=== PATIENT | female | born 1995 | race African-American/Black ===

== ENCOUNTER 2017-04-19 11:03 | Emergency (ER) | payer SELFPAY ==
[2017-04-19 11:33] LABS: Bilirubin Negative (Negative); Blood, Urine Negative (Negative); Glucose, Urine (Dipstick) Negative (Negative); Ketone, Urine Negative (Negative); Nitrite Negative (Negative); Protein, Urine (Dipstick) 30 mg/dL (Neg-Trace); Urobilinogen 0.2 mg/dL (0.2-1.0)
[2017-04-19 11:41] LABS: #Basophils 0.1 thou/uL (0.0-0.2); #Eosinphils 0.3 thou/uL (0.0-0.7); #Lymphocytes 2.7 thou/uL (1.20-3.40); #Monocytes 0.5 thou/uL (0.11-0.59); #Neutrophils 4.7 thou/uL (1.40-6.50); %Eosinophils 3.9 % (0.0-10.0); %Lymphocytes 32.4 % (28.0-48.0); Hematocrit 39.6 % (36.0-47.0); Mean Platelet Volume 7.8 fL (7.4-10.4); Red Blood Cell (RBC) Count 4.59 mill/uL (4.00-5.20); White Blood Cell (WBC) Count 8.2 thou/uL (4.8-10.8)
[2017-04-19 11:45] LABS: Bacteria/HPF Rare-Few HPF (None Seen); RBC/HPF 0-3 HPF (0-3); Squamous Epithelial 0-3 HPF (0-3); WBC/HPF 0-3 HPF (0-3)
[2017-04-19 11:58] LABS: Anion Gap 11 mmol/L (10-20); BUN (Urea Nitrogen) 11 mg/dL (7.0-18.7); Calc. Creatinine Clearance 0 mL/min (70-130); Calcium 9.2 mg/dL (7.8-10.44); Carbon Dioxide 26 mmol/L (22-29); Chloride 107 mmol/L (98-107); Estimated GFR-MDRD Greater than 90
== END 2017-04-19 13:03 | disposition home or self-care (01) ==
LOC: SCSER 11:03
DX: E86.0 Dehydration (principal); R19.7 Diarrhea, unspecified; R11.2 Nausea with vomiting, unspecified; J45.909 Unspecified asthma, uncomplicated
CPT/HCPCS: 80048; 81003; 81015; 81025; 85025; 99284

== ENCOUNTER 2018-07-16 14:21 | Emergency (ER) | payer SELFPAY ==
[2018-07-16] MEDS ORDERED: Dexamethasone 10 MG/ML VIAL ONE (14:38)
== END 2018-07-16 14:43 | disposition home or self-care (01) ==
LOC: SCSER 14:21
DX: J02.9 Acute pharyngitis, unspecified (principal); J06.9 Acute upper respiratory infection, unspecified; J45.909 Unspecified asthma, uncomplicated; F17.210 Nicotine dependence, cigarettes, uncomplicated
CPT/HCPCS: 99283; J1100

== ENCOUNTER 2019-05-17 23:01 | Emergency (ER) | payer SELFPAY | END 2019-05-17 23:28 | disposition home or self-care (01) | LOC: SCSER 23:01 | DX: J02.9 Acute pharyngitis, unspecified (principal); J45.909 Unspecified asthma, uncomplicated; F41.9 Anxiety disorder, unspecified; F32.9 Major depressive disorder, single episode, unspecified; F17.210 Nicotine dependence, cigarettes, uncomplicated; Z79.51 Long term (current) use of inhaled steroids | CPT/HCPCS: 87081; 87430; 99283 ==

== ENCOUNTER → 2019-11-28 | Day surgery (SDC) | payer OTHER ==
[~2019-11-28] MED LIST: hydrALAZINE 20 MG/ML VIAL SLOW IVP PRN
--- NOTE | 2019-11-29 05:50 | PRG ---
DATE OF SERVICE: 11/28/2019 PRIMARY OB: Antonio Thompson MD CHIEF COMPLAINT: Right groin pain. HISTORY OF PRESENT ILLNESS: The patient is a 24-year-old, G2, P1 female with an intrauterine of a di-di twin gestation at 23 weeks and 3 days presenting today with right-sided groin pain. She reports that she has a habit of jumping out of bed when she wakes up and pulled something in her right lower pelvis. The patient reports that it is not difficult for her to get out of bed and to roll over and came for evaluation to make sure everything was okay. The patient denies fever, fall, headache, chest pain or shortness of breath. She has nausea. Denies vomiting. Denies diarrhea or constipation. Denies any new rashes, hip problems, knee problems or muscle weakness. Denies vaginal bleeding, leakage of fluid, urinary urgency or frequency. She last saw her provider a couple of weeks ago and is scheduled at the beginning days of December for her followup appointment. The patient reports that she has extreme itching when she gets out of the shower and that she has tried using different soaps. PAST MEDICAL HISTORY: Reports a history of asthma. PAST SURGICAL HISTORY: She has had 1 prior . PSYCHIATRIC HISTORY: Anxiety and depression. SOCIAL HISTORY: The patient reports tobacco use, 4 to 5 cigarettes a day. Denies alcohol or drug use. ALLERGIES: NO KNOWN DRUG ALLERGIES. MEDICATIONS: vitamins. OB LABS: Unavailable at time of dictation. REVIEW OF SYSTEMS: Per HPI. PHYSICAL EXAMINATION: VITAL SIGNS: Blood pressure 133/69, heart rate of 93, respiratory rate 18, and temperature 98.2. GENERAL: She appears to be in no acute distress. She is alert, oriented, cooperative, and pleasant to interact with. HEAD: Normocephalic and atraumatic. LUNGS: Clear to auscultation bilaterally. HEART: Has regular rate and rhythm. ABDOMEN: Gravid and soft. No palpable contractions. She has reproducible pain in the right lower inguinal region with deviation of the uterus to the left. She has no fundal tenderness or no other uterine or abdominal tenderness. EXTREMITIES: Nontender and nonedematous. : Has been deferred. Heart tones for the twins are dopplered in the 120s and 150s. ASSESSMENT/PLAN: The patient is a 24-year-old with an intrauterine of twin gestation at 23 weeks and 3 days experiencing musculoskeletal pains of . We did review a different technique for getting out of bed that would help her minimize future risk of pulling the similar ligaments and muscles. The patient does report that it helps as we practiced a couple of times today in the bed. We have also recommended a belly band. We spent some time discussing a way to hydrate her skin and minimize her itching as the patient does report she enjoys hot showers. We have asked her to take some lukewarm showers, to only use soap in the areas that cause the most odor for her, and to not towel dry, but to hydrate her skin with a hypoallergenic lotion, air dry as much as possible and pat dry areas that need the additional help. The patient is otherwise being discharged to home with reassurance. She has also been counseled to try to take two Tylenols 3 times a day for the next several days to see if this will help, and she has been counseled to follow up with her primary OB as scheduled on December 07 or . Job ID: [id number]
== END | disposition home or self-care (01) ==
LOC: L&D/OP 17:24
PROVIDERS: ATTEND Family Medicine
DX: O99.89 Other specified diseases and conditions complicating pregnancy, childbirth and the puerperium (principal); R10.31 Right lower quadrant pain; O30.042 Twin pregnancy, dichorionic/diamniotic, second trimester; O99.332 Smoking (tobacco) complicating pregnancy, second trimester; F17.210 Nicotine dependence, cigarettes, uncomplicated; O99.512 Diseases of the respiratory system complicating pregnancy, second trimester; J45.909 Unspecified asthma, uncomplicated; O34.219 Maternal care for unspecified type scar from previous cesarean delivery; Z3A.23 23 weeks gestation of pregnancy

== ENCOUNTER 2019-12-22 22:05 | Day surgery (SDC) | payer OTHER ==
[2019-12-22 22:42] VITALS: BMI 41.1
[2019-12-22] MEDS ORDERED: hydrALAZINE 20 MG/ML VIAL SLOW IVP PRN (23:09)
--- NOTE | 2019-12-23 03:32 | PRG ---
DATE OF SERVICE: 12/22/2019 PRIMARY OB: Antonio Thompson MD. CHIEF COMPLAINT: Pelvic pain. HISTORY OF PRESENT ILLNESS: The patient is a 24-year-old G2, P1 with an intrauterine at 27 weeks gestation of a twin gestation believed to be dichorionic diamniotic per patient report. The patient is presenting with complaints of 4-day history of pain in her lower pelvis, right side worse than left. She reports the pain is sharp, worse with activity and movement and mostly she tries to get out of bed too quickly. The patient denies any vaginal bleeding, leakage of fluid, urinary urgency or frequency. Denies uterine contractions. The patient does report that she has been seen by [facility] because her babies are measuring very small. She has an appointment tomorrow, at which time the patient may be admitted to the hospital for inpatient management in [place]. The patient denies fever, cough, headache, chest pain, shortness of breath, nausea, vomiting, diarrhea, constipation, new rashes, hip problems, knee problems, muscle weakness, again vaginal bleeding, leakage of fluid, urinary urgency or frequency. PAST MEDICAL HISTORY: Asthma, anxiety, depression, bipolar disorder,. PAST SURGICAL HISTORY: She has had 1 prior . SOCIAL HISTORY: Positive for tobacco use. Denies alcohol or drug use. ALLERGIES: NO KNOWN DRUG ALLERGIES. MEDICATIONS: vitamins. OB LABS: Unavailable at time of dictation. PHYSICAL EXAMINATION: VITAL SIGNS: Blood pressure 131/75, heart rate of 99, saturating 98% on room air, respiratory rate of 18. GENERAL: She appears to be in no acute distress. She is alert, oriented, cooperative, and pleasant to interact with. HEENT: Head is normocephalic and atraumatic. LUNGS: Clear to auscultation bilaterally. HEART: Regular rate and rhythm. ABDOMEN: Gravid, soft. She does have some tenderness in the right lower quadrant with deviation of the uterus. No rebound. No guarding. No peritoneal signs. EXTREMITIES: Nontender. Minimal symmetrical edema. heart tracing difficult to obtain due to habitus. Baby A appears to have a baseline in the 160s with accelerations and baby B in the 150s with possible variable decelerations. BPP for fetus A is 8/8 and fetus B is 8/8. Estimated weight of baby A is 486 g, putting it less than the 1st percentile and baby B 634 g also less than the 1st percentile. S/D ratios for baby A of umbilical artery Dopplers ranged from 2.41 to 3.07, all within normal limits; baby B 2.59 to 4.0, again within normal limits for this gestational age. Both placentas describes grade 1 and amniotic fluid index for baby A is 11 and baby B is 10. ASSESSMENT/PLAN: The patient is a 24-year-old G2, P1 female with a di-di twin gestation at 27 weeks with both babies being IUGR and being less than the 1st percentile. Placenta appears to be normal, fluid levels are normal. S/D ratios of the umbilical artery Dopplers at this time are within normal limits. The patient does have an appointment later this morning in [place] and has been given instructions to be prepared for inpatient management. Given the findings on this morning's ultrasound, the patient has been discharged home given this close followup. Her abdominal pain is likely secondary to ligamentous pain of , musculoskeletal pains, and it appears that she has had this same pains for over the last nearly months as she presented last month with the same chief complaint. The patient is being discharged home. She has instructions to follow up with [facility] as scheduled later in the morning. Job ID: [id number]
--- NOTE | 2019-12-23 08:19 | ULT ---
PRELIMINARY REPORT/[facility]/EMERGENCY AFTER HOURS PROCEDURE US OBSTETRIC LIMITED, US BIOPHYSICAL PROFILES, US OBSTETRIC MULTIPLE PROCEDURE: Obstetrical Ultrasound Greater Than 14 Weeks Limited With Additional Fetus. HISTORY: Intrauterine growth retardation. TECHNIQUE: Real-time, color flow, and M-mode evaluation was performed or attempted of the maternal p jordi and fetus(es) with image documentation. COMPARISONS: None . TECHNICAL QUALITY: Satisfactory . FINDINGS: The exam shows twin viable diamniotic intrauterine . Chorionicity was not evaluated on the study. TWIN A Fetus A demonstrates estimated gestational age of 22 weeks 3 days with an estimated date of confineme nt of 04/23/2020. The estimated weight is 486 grams corresponding to 1 pound 1 oz. BIOMETRY BPD 5.41 cm 22 weeks 3 days HC 21.08 cm 23 weeks 1 day AC 17.41 cm 22 weeks 2 days FL 3.71 cm 21 weeks 6 days BIOMETRIC RATIOS - not calculated. The fetus is in oblique presentation. Amniotic fluid index appeared normal measuring 11.0 cm. The placenta is anterior and grade 1 in appearance with no evidence of a previa or abruption. The heart rate was measured at 162 beats per minute. Placental, mid, and cord PS velocities measured 62.0, 62.7, and 50.1 cm/s, respectively. Place ntal, mid, and cord ED velocities measured 25.7, 22.6, and 16.3 cm/s, respectively. Placental, mid, and cord S/D ratios were calculated at 2.41, 2.77, and 3.07, respectively. Biophysical profile of 02/12. TWIN B Fetus B demonstrates estimated gestational age of 24 weeks 0 days with an estimated date of confineme nt of 04/12/2020. The estimated weight is 634 grams corresponding to 1 pound 6 oz. BIOMETRY BPD 5.76 cm 23 weeks 4 days HC 22.80 cm 24 weeks 6 days AC 19.15 cm 23 weeks 6 days FL 4.17 cm 23 weeks 4 days BIOMETRIC RATIOS - not calculated. The fetus is in breech presentation. Normal amniotic fluid index of 10.0 cm. The placenta is anterior and grade 1 in appearance with no evidence of a previa or abruption. The heart rate was measured at 163 beats per minute. Umbilical artery S/D ratio was measured at 3.17. Placental, mid, and cord PS velocities measured 69.6, 92.7, and 93.6 cm/s, respectively. Place ntal, mid, and cord ED velocities measured 26.9, 31.7, and 23.4 cm/s, respectively. Placental, mid, and cord S/D ratios were calculated at 2.59, 2.92, and 4.00, respectively. Biophysical profile of 02/12. IMPRESSION: Twin viable intrauterine as described above. Normal biophysical profile both fetuses. ELECTRONICALLY SIGNED BY: Sergio Pacheco MD Dec 23, 2019 1:57:37 AM CDT This report is intended for review by the ordering physician only, in accordance of law. If you recei ve this report in error, please call [facility] at [phone]. FINAL REPORT OB ULTRASOUND BIOPHYSICAL PROFILE UMBILICAL ARTERY ULTRASOUND: TECHNIQUE: Multiplanar, coyne scale, and color Doppler images were obtained in a transabdominal ultrasound. Biophysical profile was also performed. Spectral analysis of the Doppler waveforms of the umbilica l arteries was performed. FINDINGS/IMPRESSION: I agree with the findings and impression given in the preliminary report per [facility] physici an. There is a viable Twin intrauterine . Both twins have a normal biophysical profile. T he umbilical arteries of both of the twins are normal and there is persistent diastolic flow. POS: EAA
== END 2019-12-23 02:35 | disposition home health service (06) ==
LOC: L&D/OP 22:05
PROVIDERS: ATTEND Family Medicine
DX: O99.89 Other specified diseases and conditions complicating pregnancy, childbirth and the puerperium (principal); R10.2 Pelvic and perineal pain; O36.5921 Maternal care for other known or suspected poor fetal growth, second trimester, fetus 1; O36.5922 Maternal care for other known or suspected poor fetal growth, second trimester, fetus 2; O30.042 Twin pregnancy, dichorionic/diamniotic, second trimester; O99.342 Other mental disorders complicating pregnancy, second trimester; F41.9 Anxiety disorder, unspecified; F31.9 Bipolar disorder, unspecified; O99.512 Diseases of the respiratory system complicating pregnancy, second trimester; J45.909 Unspecified asthma, uncomplicated; Z3A.27 27 weeks gestation of pregnancy
CPT/HCPCS: 76810; 76819; 93975; 99282

== ENCOUNTER → 2025-05-14 | Emergency (ER) | payer BC ==
[2025-05-14 12:55] LABS: Pregnancy Test - Urine (BHCG) Negative (Negative); Pregu Control Background? CLEAR/WHITE (CLR/WHITE); Pregu Control Bar Appear? YES (CONTROL BAR)
[2025-05-14 12:56] LABS: #Basophils 0.06 10x3/uL (0.0-0.2); #Eosinophils 0.17 10x3/uL (0.0-0.7); #Monocytes 0.70 10x3/uL (0.11-0.59); #Neutrophils 5.81 10x3/uL (1.40-6.50); %Basophils 0.6 % (0.0-1.0); %Eosinophils 1.8 % (0.0-10.0); %Lymphocytes 30.0 % (21.0-51.0); %Monocytes 7.2 % (0.0-10.0); %Neutrophils 59.9 % (42.0-75.0); Hematocrit 40.0 % (36.0-47.0); Hemoglobin 13.0 g/dL (12.0-16.0); Mean Corpuscular Hemoglobin 27.6 pg (27.0-31.0); Mean Corpuscular Volume 84.9 fL (78.0-98.0); Platelet Count 350 10x3/uL (130-400); Red Blood Cell (RBC) Count 4.71 mill/uL (4.20-5.40); White Blood Cell (WBC) Count 9.70 10x3/uL (4.8-10.8)
[2025-05-14 12:56] LABS: Bacteria/HPF None Seen HPF (None Seen); CAUTI Indications for Culture Pregnancy; Glucose, Urine (Dipstick) Normal (Negative); Leukocyte Negative Leu/uL (Negative); Protein, Urine (Dipstick) Negative (Neg-Trace); RBC/HPF 0-3 HPF (0-3); Specific Gravity, Urine 1.023 (1.002-1.036); WBC/HPF 0-3 HPF (0-3)
[2025-05-14 12:57] LABS: Urine Culture Reflex Yes Yes
[2025-05-14 13:16] LABS: ALT (SGPT) 10 U/L (Less than 34); AST (SGOT) 16 U/L (11-34); Albumin 3.8 g/dL (3.1-4.5); Alkaline Phosphatase 69 U/L (40-110); Anion Gap 11 mmol/L (10-20); BUN (Urea Nitrogen) 7 mg/dL (7.0-18.7); Bilirubin, Total 1.2 mg/dL (0.3-1.2); Calc. Creatinine Clearance 0 mL/min (70-130); Calcium 8.9 mg/dL (7.8-10.44); Carbon Dioxide 23 mmol/L (22-29); Chloride 107 mmol/L (98-107); Globulin 2.9 g/dL (2.4-3.5); Glucose 75 mg/dL (70-105); Potassium 3.8 mmol/L (3.5-5.1); Sodium 137 mmol/L (136-145)
== END ==
LOC: ERS 12:14
DX: N93.9 Abnormal uterine and vaginal bleeding, unspecified (principal); J45.909 Unspecified asthma, uncomplicated; F17.210 Nicotine dependence, cigarettes, uncomplicated; Z79.51 Long term (current) use of inhaled steroids
CPT/HCPCS: 36415; 76856; 80053; 81001; 81025; 85025; 87086